=== PATIENT | female | born 1945 | race Caucasian/White ===

== ENCOUNTER → 2024-09-25 08:13 | Outpatient (REF) | payer OTHER, SELFPAY | LOC: WDC 08:13 | PROVIDERS: ATTENDING PHYSICIAN Family Medicine | DX: Z12.31 Encounter for screening mammogram for malignant neoplasm of breast (principal) | CPT/HCPCS: 77063; 77067 ==

== ENCOUNTER → 2024-11-06 08:51 | Outpatient (REF) | payer OTHER, SELFPAY | LOC: RAD 08:51 | PROVIDERS: ATTENDING PHYSICIAN Internal Medicine Rheumatology; FAMILY PHYSICIAN Family Medicine | DX: M81.0 Age-related osteoporosis without current pathological fracture (principal); M81.8 Other osteoporosis without current pathological fracture | CPT/HCPCS: 77080; 77081 ==

== ENCOUNTER 2025-09-04 16:43 | Emergency (ER) | payer OTHER, SELFPAY ==
[2025-09-04 16:47] VITALS: BP 99/52
[2025-09-04 16:48] VITALS: BP 99/52
[2025-09-04 17:00] VITALS: BP 102/53
[2025-09-04] MEDS: NSS 1000 IV (17:04)
[2025-09-04 17:16] LABS: Hematocrit 37.6 % (37.0-47.0); Hemoglobin 12.7 g/dL (12.0-16.0); Mean Corp Hgb Conc. 33.8 g/dL (33.0-37.0); Mean Corpuscular Volume 86.8 fL (81.0-99.0); Nucleated Red Blood Cells % 0 %; Platelet Count 148 10^3/uL (130-400); Red Cell Dist. Width 14.0 % (11.5-14.5)
[2025-09-04 17:36] LABS: ALT (SGPT) 24 U/L (0-35); AST (SGOT) 27 U/L (14-36); Albumin 4.0 g/dl (3.5-5.0); Alkaline Phosphatase 60 U/L (38-126); Blood Urea Nitrogen 19 mg/dl (7-17); Calcium 9.5 mg/dl (8.4-10.2); Carbon Dioxide 27 mmol/L (22-30); Chloride 104 mmol/L (98-107); Glucose 120 mg/dl (70-99); Potassium 4.0 mmol/L (3.5-5.1); Sodium 135 mmol/L (135-145); Total Protein 6.7 g/dl (6.3-8.2); eGFR > 60.00
--- NOTE | 2025-09-04 17:41 | ED.GENMED ---
History of Present Illness
General
Chief Complaint: Weakness
Source: patient and spouse
Exam Limitations: none
Time Seen by Provider: 09/04/25 17:01
Nursing documentation reviewed up to this point in time: agreed with
History of Present Illness
History of Present Illness:
80-year-old female with mention of EMS had a COVID shot yesterday tested her spouse was okay last night today has been laying around sleeping all day not eating or drinking, no fever no nausea vomiting chest pain or shortness of breath feeling
better after some IV fluids here, denies dysuria or frequency
Past History
Past History
ED Past Medical History: Other (Dementia)
Social History
Tobacco: Non-smoker
Alcohol: None
Drug: None
Personal:
Living: with family
Employment: Employed
Review of Systems
Review of Systems
All Other Systems: Not applicable
Constitutional: Reports fatigue; Denies fever
EENT: Reports no symptoms
Respiratory: Reports no symptoms
Cardiac: Reports no symptoms
ABD/GI: Reports no symptoms; Denies abdominal pain or nausea
: Reports no symptoms
Musculoskeletal: Reports no symptoms
Neurological: Reports weakness
Phy Exam
Physical Exam
Physical Exam:
Physical Exam
General: no apparent distress, not acutely ill
Neck: Lips are moist
Heart: s1/s2 regular rate and rhythm, no murmur. equal radial pulses.
Lungs: no acute respiratory distress. clear bilaterally
Abdomen: Nontender
Neuro: alert and oriented. no focal neurological deficits
Skin: no rash
Psychiatric: well kept. interactive and cooperative
Extremities: no edema.
Course
Orders/Labs/Results
Orders:
Orders
09/04/25 16:57
CMP [Comprehensive Metabolic Panel] Urgent
Complete Blood Count/With Diff Urgent
09/04/25 16:59
0.9% Sodium Chloride 1000 ml [Nss] 1,000 ml IV BOLUS
CR Chest - 2 Views Urgent
Comment:
Reason For Exam: weakness
09/04/25 17:00
Electrocardiogram (*1) Urgent
Reason for Study: Palpitations
EKG- Treatment ONCE
09/04/25 19:27
Urinalysis Reflex To Culture Urgent
Date Specimen was Collected: 09/04/25
Time Specimen was Collected: 19:27
Urine Microscopic Reflex Cult Urgent
Abnormal Lab Results
09/04/25 09/04/25
16:57 19:27
WBC 4.0 L 10^3/uL
(4.8-10.8)
Absolute Lymphs (auto) 0.4 L 10^3/uL
(1.2-3.4)
Neutrophils % 82.6 H %
(42.2-75.2)
Lymphocytes % 10.1 L %
(20.5-51.1)
BUN 19 H mg/dl
(7-17)
Glucose 120 H mg/dl
(70-99)
Urine Ketones 2+ A
(Negative)
Urine Albumin (Reflex) 1+ A
(Neg - Trace)
09/04/25 16:57
09/04/25 16:57
Vital Signs
Initial and Last Documented VS:
Initial Vital Signs
Temp Pulse Resp BP Pulse Ox
98.7 F 67 16 99/52 98
09/04/25 16:47 09/04/25 16:47 09/04/25 16:47 09/04/25 16:47 09/04/25 16:47
Last Documented Vital Signs
Temp Pulse Resp BP Pulse Ox
98.7 F 69 15 101/77 97
09/04/25 16:47 09/04/25 19:35 09/04/25 19:35 09/04/25 19:00 09/04/25 19:35
MDM/Problems Addressed
Differential Diagnosis Includes:
Viral syndrome UTI pneumonia electrolyte abnormality reaction to vaccine
MDM/Problems Addressed:
Weakness
*Radiology
Radiology exam reviewed: preliminary read by ED provider
*Pulse Oximetry
SaO2: 97
Oxygen Mode of Delivery: Room air
Patient hypoxic: no
*EKG
Interpreted by ED Provider?: Yes
Interpretation: abnormal
Comparison EKG: no comparison EKG present
Heart Rate: 78
Rate: normal
Rhythm: sinus
Ischemia: non-specific ST changes
*Automatic Profile Sander Operator Interpretation
Rate: normal
Interpretation: normal
Heart Rate: 78
Rhythm: sinus
*Critical Care Note
Total Time (30-74mins, 75-104mins- exclusive of procedures): Not Applicable
Update Note
Update Note:
7:45 PM update patient looks better after fluids, ambulated without difficulty chest x-ray report noted labs noted
ED Attending Note
-
Portions of this chart may have been created with voice recognition software.� Occasional wrong word or��sound alike� substitutions may have occurred due to the inherent limitations of voice recognition software.
Discharge Plan
Departure
Patient Disposition: Home (Routine Discharge)
Date of Disposition: 09/04/25
Time of Disposition: 19:53
Patient with high blood pressure during this ER visit?: No
Condition: Good
Covid-19: Not Applicable
Discharge Problem:
Weakness after vaccination
Instructions: Generalized Weakness (DC)
Prescriptions:
No Action
prednisone 10 MG tablet
10 mg PO .TAPER Qty: 30 0RF
Rx Instructions:
Take [id number], [id number], 99zrp9vbsb, 62sbu3cmph, [id number]
Referrals:
Marylu Brenner MD [Family Provider, [facility]] - Next open appointment
Activity Restrictions/Additional Instructions:
Drink plenty of fluids, Tylenol as needed for fever or body ache
Return to the ER if any concerns
Interventions
Interventions:
*Risk Screen - Suicide Last Done: 09/04/25 16:47
*General Assessment Last Done: 09/04/25 16:47
*Neglect/Abuse Screening Last Done: 09/04/25 16:47
*ED- Fall Risk Assessment Last Done: 09/04/25 16:47
*ED COVID-19 Vaccine History Last Done: 09/04/25 16:47
*ED Influenza Vaccine History Last Done: 09/04/25 16:47
ED- Cardiac Assessment Last Done: 09/04/25 17:22
ED- Neurological Assessment Last Done: 09/04/25 17:22
ED- Pulmonary Assessment Last Done: 09/04/25 17:22
Discharge Date and Time
Print Language: ANDORRAN
[2025-09-04 18:00] VITALS: BP 107/47
[2025-09-04 19:00] VITALS: BP 101/77
[2025-09-04 19:37] LABS: Urine Character Clear (Clear)
[2025-09-04 20:21] LABS: Urine Red Blood Cell 0-2 /HPF (0-2); Urine Squamous Cell 0-2 /LPF (Few); Urine White Cell 0-2 /HPF (0-5)
== END 2025-09-04 20:42 | disposition home or self-care (01) ==
LOC: EMR 16:43
PROVIDERS: EMERGENCY PHYSICIAN Emergency Medicine; FAMILY PHYSICIAN Family Medicine
DX: R53.1 Weakness (principal); F03.90 Unspecified dementia, unspecified severity, without behavioral disturbance, psychotic disturbance, mood disturbance, and anxiety
CPT/HCPCS: 99284; 96360; 71046; 80053; 81003; 81015; 85025; 93005